=== PATIENT | male | born 1985 | race American Indian/Alaskan Native ===

== ENCOUNTER 2016-11-14 03:42 | Emergency (ER) | payer OTHER, MEDICAID ==
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
--- NOTE | 2016-11-14 08:24 | Cat Scan Report ---
CT FACIAL BONES WITHOUT CONTRAST: HISTORY: Facial injury, headache. TECHNIQUE: Helical CT images with sagittal and coronal CT reformations. FINDINGS: All paranasal sinuses are clear. No sinus wall fracture, fluid level or opacification. The orbital cavities are symmetric and intact. The mandible is intact. The skull base and upper cervical spine demonstrate no evidence for acute injury. Mild frontal soft tissue swelling is noted. IMPRESSION: Mild frontal soft tissue swelling. No acute facial fracture identified.
--- NOTE | 2016-11-14 08:25 | Cat Scan Report ---
CT HEAD WITHOUT CONTRAST: HISTORY: Head injury, headache, blurry vision. Serial contiguous axial images were obtained through the cranium. Intravenous contrast material was not administered. The ventricles are normal in size and appearance. There is no mass effect or midline shift. No areas of abnormally increased or decreased attenuation are seen. No mass lesion is seen. The mastoid air cells and visualized portions of the sinuses are normal. IMPRESSION: Cranial CT scan within normal limits.
[2016-11-14] MEDS ORDERED: TYLENOL #3 PO ONE (08:42)
[2016-11-14] MEDS ORDERED: NACL 0.9% 500 ML IR ONE (08:43)
[2016-11-14 09:03] VITALS: BP 116/72
[2016-11-14] MEDS ORDERED: NACL 0.9% IR ONE (09:03)
== END 2016-11-14 09:23 | disposition home or self-care (01) ==
LOC: ED 03:42 → EEVIPCON 03:42 → ED 09:23
DX: S00.83XA Contusion of other part of head, initial encounter (principal); Z21 Asymptomatic human immunodeficiency virus [HIV] infection status; W22.8XXA Striking against or struck by other objects, initial encounter; Y93.9 Activity, unspecified; Y92.9 Unspecified place or not applicable; Y99.9 Unspecified external cause status
CPT/HCPCS: 70450; 70486; 99284